=== PATIENT | female | born 1970 | race Hispanic/Latino ===

== ENCOUNTER 2016-05-07 11:09 | Day surgery (SDC) | payer OTHER ==
[2013-04-06 14:40] VITALS: BMI 37.8
[2016-05-07 11:50] LABS: ADD MANUAL DIFF? NO
[2016-05-07 11:54] LABS: BASO # 0.04 K/mm3 (0.0-2.0); BASO % 0.8 % (0.0-3.0); EOS # 0.1 (0.0-0.7); EOS % 1.7 % (1.5-5.0); GRAN # 2.55 (1.4-6.5); HEMATOCRIT 38.5 % (36.0-48.0); LYMPH # 2.1 (1.2-3.4); LYMPH % 39.3 % (22.0-35.0); MEAN CELL VOLUME 88.5 fL (80.0-105.0); MEAN CORPUSCULAR HEMOGLOBIN 29.7 pg (25.0-35.0); MEAN CORPUSCULAR HGB CONC 33.5 g/dl (31.0-37.0); MEAN PLATELET VOLUME 9.4 fl (7.0-11.0); MONO # 0.5 (0.1-0.6); MONO % 9.2 % (1.0-6.0); PLATELET COUNT 268 10^3/uL (120.0-450.0); RED CELL DISTRIBUTION WIDTH 13.1 % (11.5-14.5); WHITE BLOOD COUNT 5.2 10^3/ul (4.5-11.0)
[2016-05-07 12:02] LABS: BLOOD UREA NITROGEN 11 mg/dL (7-21); CALCIUM 8.9 mg/dL (8.4-10.5); CARBON DIOXIDE 29 mmol/L (21-33); CHLORIDE 103 mmol/L (98-107); GFR AFRICAN-AMERICAN > 60; GLUCOSE,RANDOM 89 mg/dL (70-110); POTASSIUM 4.3 mmol/L (3.6-5.0); SODIUM 140 mmol/L (132-148)
[2016-05-07 12:08] LABS: INR 0.95 (0.93-1.08); PARTIAL THROMBOPLASTIN TIME 23.8 Seconds (23.7-30.8)
[2016-05-07] MEDS ORDERED: Midazolam 2 MG/2 ML VIAL ONE (13:15)
--- NOTE | 2016-05-07 13:18 | CP.SDSHP ---
Same Day Surgery H & P - History Proposed Procedure: Thyroid biopsy Pre-Op Diagnosis: Incidentally detected bilateral thyroid masses when she was evaluated for pain and numbness in left upper extremity. Factor V leiden deficiency detected >20 yrs ago following of twins. PE and extensive right ileo femoral DVT requiring pharmacologic and intravascular thrombolysis February 2013. H/O recurrent DVTs - stable since 2013 and is currently on Eliquis - last dose 5 days ago in prep for todays procedure - Previous Medical/Surgical History Pain: 0. No Pain Previous Surgical History: Right Ileofemoral thrombolysis and angioplasty 03/24 - Allergies Allergies: Allergies No Known Allergies Allergy (Verified 03/24/13 13:56) - Current Medications Current Medications: As noted in chart and importantly pt is on Eliquis daily. ( Last dose 5 days ago in prep for thyroid biopsy today) - Physical Exam Vital Signs: Vital Signs 05/07/16 11:40 Temperature 97.8 F Pulse Rate 76 Respiratory 18 Rate Blood Pressure 125/62 O2 Sat by Pulse 96 Oximetry Neuro: WNL Heart: WNL Lungs: WNL GI: WNL - {Optional Preform as Required} Abdomen: WNL - Impression Impression: Bilateral Thyroid masses Pt. Evaluated Today:Candidate for Anesthesia & Procedure: Yes - Date & Time Date: 05/07/16 Time: 13:00 Short Stay Discharge - Short Stay Discharge Admitting Diagnosis/Reason for Visit: THYROID MASS E04.1
[2016-05-07] MEDS ORDERED: Oxycodone/Acetaminophen 5/325 mg Tab PO PRN (14:11)
[2016-05-07] MEDS ORDERED: Sodium Chloride 0.45% 1,000 ML IV SCH (14:15)
[2016-05-07 15:11] VITALS: RESP 20; TEMP 98.2; O2SAT 99
[2016-05-07 15:30] VITALS: BP 123/65; PULSE 87
--- NOTE | 2016-05-14 22:28 | US ---
PROCEDURE: Ultrasound-guided left thyroid fine needle aspiration biopsy. CLINICAL HISTORY: And 3.2 cm complex left thyroid nodule. Evaluate for malignancy. PHYSICIAN(S): Davide Mohan M.D. TECHNIQUE: The relative risks and indications for the procedure were explained to the patient and consent obtained. The patient was placed supine on the stretcher with the neck extended and preliminary sonography of the thyroid performed. This reveal dominant 3.2 cm complex nodule in the lower aspect of the left thyroid. The thyroid is diffusely enlarged is somewhat heterogeneous in echotexture. This could represent a thyroiditis. The neck was prepped and draped in the usual sterile fashion. Conscious sedation and monitoring were provided throughout the procedure by a nurse. 1% Xylocaine was used to anesthetize the skin and soft tissues at the access site. Three passes with a 22-gauge needle were performed under ultrasound guidance for fine needle aspiration of the 3 cm heterogeneous complex nodule in the left thyroid. The slides were reviewed by pathology and deemed adequate. The patient tolerated the procedure well. IMPRESSION: 1. Ultrasound guided fine needle aspiration of a 2.2 cm complex heterogeneousnodule in the left thyroid.
== END 2016-05-07 15:45 | disposition home or self-care (01) ==
LOC: SDS 11:09
PROVIDERS: ATTEND Radiology Vascular & Interventional Radiology
DX: D34 Benign neoplasm of thyroid gland (principal); D68.51 Activated protein C resistance; Z86.718 Personal history of other venous thrombosis and embolism; Z86.711 Personal history of pulmonary embolism; Z79.01 Long term (current) use of anticoagulants
CPT/HCPCS: 10022; 36415; 80048; 84703; 85025; 85610; 85730; 88173; 88305; J2250; J2405; J3010; J7030

== ENCOUNTER 2017-10-17 04:32 | Emergency (ER) | payer OTHER ==
[2017-10-17 04:36] VITALS: BMI 34.3
--- NOTE | 2017-10-17 04:44 | ED PDOC ---
Arrival/HPI - General Chief Complaint: Lower Extremity Problem/Injury Time Seen by Provider: 10/17/17 04:34 Historian: Patient - History of Present Illness Narrative History of Present Illness (Text): 10/17/17 04:44 Lizzy Aceves is a 46 year old female, whose past medical history includes multiple DVTs s/p IVC filter on Eliquis, PE, and Factor V leiden deficiency, who presents to the Emergency department complaining of right lower leg pain. Patient states she began experiencing right lower leg/calf pain yesterday but notes pain worsened throughout the day and woke her up this morning. Patient states she is unable to bear weight on her right leg secondary to pain. Patient is concerned due to her history of DVTs in the past and came in for further evaluation. Patient states her last DVT on 2013. Patient denies any fever, weakness/numbness/tingling in the extremity, chest pain, shortness of breath, headache, recent trauma/injury, or any other complaints. Symptom Onset: Gradual Symptom Course: Unchanged Activities at Onset: Light Context: Home Past Medical History - Provider Review Nursing Documentation Reviewed: Yes - Infectious Disease Hx of Infectious Diseases: None - Cardiac Hx Pacemaker: No - Pulmonary Hx Respiratory Disorders: No Hx Pulmonary Embolism: Yes - Neurological Hx Paralysis: No - HEENT Hx HEENT Disorder: No - Renal Hx Renal Disorder: No - Endocrine/Metabolic Hx Endocrine Disorders: No - Hematological/Oncological Hx Blood Transfusions: No Hx Blood Transfusion Reaction: No - Integumentary Hx Dermatological Disorder: No - Musculoskeletal/Rheumatological Hx Musculoskeletal Disorders: Yes - Gastrointestinal Hx Gastrointestinal Disorders: No - Genitourinary/Gynecological Hx Genitourinary Disorders: Yes (CEASEREAN SECTION X 2) - Psychiatric Hx Emotional Abuse: No Hx Physical Abuse: No Hx Substance Use: No - Surgical History Other/Comment: VENA CAVA FILTER - Anesthesia Hx Anesthesia: Yes Hx Anesthesia Reactions: No Hx Malignant Hyperthermia: No - Suicidal Assessment Feels Threatened In Home Enviroment: No Family/Social History - Physician Review Nursing Documentation Reviewed: Yes Family/Social History: Unknown Family HX Smoking Status: Never Smoked Hx Alcohol Use: No Hx Substance Use: No Hx Substance Use Treatment: No Allergies/Home Meds Allergies/Adverse Reactions: Allergies No Known Allergies Allergy (Verified 10/17/17 04:36) Home Medications: Home Meds Medication Instructions Recorded Confirmed Gabapentin [Neurontin] 300 mg PO HS 07/29/14 10/17/17 Apixaban [Eliquis] 5 mg PO BID 04/30/16 10/17/17 Zolpidem [Ambien] 10 mg PO HS 04/30/16 10/17/17 Review of Systems - Physician Review All systems were reviewed & negative as marked: Yes - Review of Systems Constitutional: Normal. absent: Fevers Eyes: Normal ENT: Normal Respiratory: Normal. absent: SOB, Cough Cardiovascular: Calf Pain (+right calf pain). absent: Chest Pain Gastrointestinal: Normal. absent: Abdominal Pain, Diarrhea, Nausea, Vomiting Genitourinary Female: Normal. absent: Dysuria, Frequency, Hematuria, Urine Output Changes Musculoskeletal: Other (+right lower leg pain). absent: Back Pain, Neck Pain Skin: Normal. absent: Rash Neurological: Normal. absent: Headache, Dizziness Endocrine: Normal Hemo/Lymphatic: Normal Psychiatric: Normal Physical Exam Vital Signs Reviewed: Yes Vital Signs Temp Pulse Resp BP Pulse Ox 10/17/17 06:32 98.2 F 85 16 100/69 99 10/17/17 04:40 97.6 F 80 18 131/64 98 10/17/17 04:36 97.6 F 80 18 131/64 98 Temperature: Afebrile Blood Pressure: Normal Pulse: Regular Respiratory Rate: Normal Appearance: Positive for: Well-Appearing, Non-Toxic, Comfortable Pain Distress: None Mental Status: Positive for: Alert and Oriented X 3 - Systems Exam Head: Present: Atraumatic, Normocephalic Pupils: Present: PERRL Extroacular Muscles: Present: EOMI Conjunctiva: Present: Normal Mouth: Present: Moist Mucous Membranes Neck: Present: Normal Range of Motion Respiratory/Chest: Present: Clear to Auscultation, Good Air Exchange. No: Respiratory Distress, Accessory Muscle Use Cardiovascular: Present: Regular Rate and Rhythm, Normal S1, S2. No: Murmurs Abdomen: No: Tenderness, Distention, Peritoneal Signs Back: Present: Normal Inspection Upper Extremity: Present: Normal Inspection. No: Cyanosis, Edema Lower Extremity: Present: CALF TENDERNESS (Right calf tenderness), Neurovascularly Intact. No: Edema, Tenderness, Swelling, Erythema, Deformity, Temperature Abnormalties Neurological: Present: GCS=15, CN II-XII Intact, Speech Normal Skin: Present: Warm, Dry, Normal Color. No: Rashes Psychiatric: Present: Alert, Oriented x 3, Normal Insight, Normal Concentration Medical Decision Making ED Course and Treatment: 10/17/17 04:44 Impression: 46 year old female complaining of right lower leg/calf pain since yesterday, worse tonight. Differential Diagnosis included but are not limited to: DVT vs. muscular strain vs. musculoskeletal pain Plan: -- US Duplex Lower Extremities -- Reassess and disposition Progress Notes: 10/17/17 05:36 US Duplex Lower Extremities positive for right popliteal DVT. 10/17/17 05:45 Paged pt's automotive parts advisor, Dr. Gallo. case d/w with same pt to be dc on Lovenox and stop eligis 10/18/17 22:25 - RAD Interpretation Radiology Orders: 10/17/17 04:44 DUPLEX LOWER EXTRM VEIN RIGHT [US] Stat - Medication Orders Current Medication Orders: Discontinued Medications Enoxaparin Sodium (Lovenox) 90 mg SC STAT STA PRN Reason: Protocol Stop: 10/17/17 06:10 Last Admin: 10/17/17 06:28 Dose: 90 mg Subcutaneous Administrations Document 10/17/17 06:28 IT (Rec: 10/17/17 06:28 IT [id number]) Injection Site MAR Injection Site Left Abdomen Charges for Administration # of Subcutaneous Administrations 1 - Scribe Statement The provider has reviewed the documentation as recorded by the Karuna Mendenhall Provider Scribe Attestation: All medical record entries made by the Scribe were at my direction and personally dictated by me. I have reviewed the chart and agree that the record accurately reflects my personal performance of the history, physical exam, medical decision making, and the department course for this patient. I have also personally directed, reviewed, and agree with the discharge instructions and disposition. Disposition/Present on Arrival - Present on Arrival Any Indicators Present on Arrival: No History of DVT/PE: Yes History of Uncontrolled Diabetes: No Urinary Catheter: No History of Decub. Ulcer: No History Surgical Site Infection Following: None - Disposition Have Diagnosis and Disposition been Completed?: Yes Diagnosis: DVT, popliteal, acute Disposition: HOME/ ROUTINE Disposition Time: 06:30 Condition: STABLE Discharge Instructions (ExitCare): Deep Vein Thrombosis (Blood Clots in the Legs) Additional Instructions: stop eliguis follow up with dr gallo today Prescriptions: Enoxaparin [Lovenox] 100 mg SQ BID #14 syr Referrals: Radha Gallo MD [Primary Care Provider] - Follow up with primary Forms: [email or web address] ([place])
[2017-10-17] MEDS ORDERED: Enoxaparin 100 mg Syringe SC STA (06:09)
[2017-10-17 06:33] VITALS: BP 100/69; PULSE 85; RESP 16; TEMP 98.2; O2SAT 99
--- NOTE | 2017-10-17 09:43 | US ---
PROCEDURE: Right lower extremity venous US HISTORY: Leg pain and swelling. Evaluate for DVT. PHYSICIAN(S): Davide Mohan M.D. TECHNIQUE: Duplex sonography and color-flow Doppler with graded compression were used to evaluate the deep venous system of the right lower extremity. FINDINGS: Occlusive thrombus is noted in the right popliteal and visualized tibial veins. The right femoral vein and right common femoral vein are patent and compressible. IMPRESSION: 1. Occlusive DVT in the right popliteal and visualized tibial veins.
== END 2017-10-17 06:33 | disposition home or self-care (01) ==
LOC: ED 04:32
DX: I82.431 Acute embolism and thrombosis of right popliteal vein (principal)
CPT/HCPCS: 93971; 96372; 99283; J1650

== ENCOUNTER 2018-05-09 10:32 | Outpatient (CLI) | payer OTHER | END 2018-05-09 10:33 | disposition home or self-care (01) | LOC: RAD 10:32 ==

== ENCOUNTER 2018-06-05 09:37 | Outpatient (CLI) | payer OTHER | END 2018-06-05 09:38 | disposition home or self-care (01) | LOC: RAD 09:37 ==